=== PATIENT | female | born 1945 | race Caucasian/White ===

== ENCOUNTER 2024-05-18 06:10 | Inpatient (IN) | payer OTHER, SELFPAY ==
[2024-04-17 13:40] VITALS: BMI 41.4
[2024-04-17 14:14] LABS: Hematocrit 44.3 % (37.0-47.0); Hemoglobin 14.8 g/dL (12.0-16.0); Mean Corp Hgb Conc. 33.4 g/dL (33.0-37.0); Mean Corpuscular Hgb 29.6 pg (27.0-31.0); Mean Corpuscular Volume 88.6 fL (81.0-99.0); Mean Platelet Volume 10.6 fL (7.4-10.4); Platelet Count 302 10^3/uL (130-400); Red Cell Dist. Width 14.4 % (11.5-14.5); White Blood Cell Count 11.9 10^3/uL (4.8-10.8)
[2024-04-17 14:54] LABS: ALT (SGPT) 17 U/L (0-35); AST (SGOT) 26 U/L (14-36); Albumin 4.6 g/dl (3.5-5.0); Alkaline Phosphatase 69 U/L (38-126); Blood Urea Nitrogen 27 mg/dl (7-17); Calcium 10.5 mg/dl (8.4-10.2); Carbon Dioxide 29 mmol/L (22-30); Chloride 98 mmol/L (98-107); Estimated Creatinine Clearance 67 ml/min; Glucose 105 mg/dl (70-99); Potassium 4.6 mmol/L (3.5-5.1); Sodium 139 mmol/L (135-145); Total Bilirubin 0.5 mg/dl (0.2-1.3); Total Protein 6.6 g/dl (6.3-8.2); eGFR > 60.00
[2024-04-18 09:02] LABS: Glycohemoglobin (HgbA1c) 5.6 % (4.0-5.6)
[2024-05-12 11:14] VITALS: BMI 41.4
--- NOTE | 2024-05-17 14:53 | PTCARENOTE ---
Patients 04/17 ECG abnormal- reviewed By Dr. Dumas- no additional interventions required
[2024-05-18] VITALS (11 sets, daily range): BP systolic 101–152; BP diastolic 46–78; PULSE 77; O2SAT 93
[2024-05-18] MEDS: MOBIC 15 MG PO (06:06)
[2024-05-18] MEDS: TYLENOL 650 MG PO ×5 (06:06→23:39)
[2024-05-18] MEDS: NORMOSOL-R/PLASMALYTE-A 1000 IV (09:32)
[2024-05-18] MEDS: ROXICODONE 5 MG PO ×3 (09:39→23:45)
--- NOTE | 2024-05-18 11:00 | PTCARENOTE ---
Pt Received from the PACU via bed. Transport was w/o incident. Pt is AAOx3, HRR w/murmur. Principal Strategist showing NSR. Pt's VSS, Pt is afebrile. Left knee with antibacterial dressing intact, scant amt. of bloody shadowing noted. Ice pack applied as
ordered. pt instructed on plan of care. Pt verbalized understanding of instructions. Call sanchez is within reach.
--- NOTE | 2024-05-18 12:37 | W.PN.ORTHO ---
Today's Communication / Plan
-
D/c when clinically stable.
Assessment
.
Distal Motor Intact: Yes
Dressing:
Clean, dry and intact.
Assessment:
L knee OA s/p L TKA w/ Dr Oshea 05/18/24
- s/p R TKA 2008
DVT prophylaxis - Eliquis at modified dosing (has Rx at home for BID until POD 5), b/l venous foot pumps
- Will resume Eliquis 5 mg PO BID on POD 5 if hemodynamically stable
H/o severe N/V reportedly w/ anesthesia in the past - Compazine prn (will Rx upon d/c)
- Continue daily PPI
- Consider Scopolamine patch
HTN - + parameters - monitor BP
PACs w/ palps - monitor on tele
- Continue BB
Chronic SOB, improving w/ recent intentional weight loss
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
- IS
- Resume Eliquis as stated above
- Frequent and early ambulation as tolerated
GERD and h/o GI ulcers - continue PPI therapy
- Minimize NSAIDs
Fibromyalgia - monitor pain and adjust meds as needed
HLD
Heart murmur
Diverticulosis
KRUEGER
OAB
Depression
Anxiety
+ Anticardiolipin Ab
Mild leukocytosis, asymptomatic
Mild hypercalcemia
Morbid obesity, BMI 41.4
Remote tobacco abuse
Plan
.
Surgery / Date: L TKA w/ Dr Oshea 05/18/24
DVT Prophylaxis: Other (Eliquis )
Activity:
Out of bed.
PT/OT
Discharge Plan: Home w/ Outpatient PT
Subjective
.
.:
Patient resting comfortably in bed.
Pain 'creeping up' in L knee but overall tolerable.
Denies any new significant complaints.
Vital Signs and Labs
.
Vital Signs and Labs:
Lab Results
04/17/24 13:12
04/17/24 13:12
Temp Pulse Resp BP Pulse Ox
98.8 F 74 16 152/78 95
05/18/24 06:08 05/18/24 06:08 05/18/24 06:08 05/18/24 06:08 05/18/24 06:08
Physical Exam
-
HEENT: No pallor, cyanosis, or jaundice. Throat clear.
NECK: Supple. No JVD.
RESPIRATORY: Lungs clear to auscultation.
CVS: S1, S2 normal. RRR.�
ABDOMEN: Soft, non-tender. No distension. Morbidly obese.
EXTREMITIES: Strength equal, no calf pain with palpation/dorsiflexion. Calves soft.
ORTHOTIC/PROSTHETIC CLINICIAN: AOx3. No focal deficits. assessment nurse practitioner grossly intact
[2024-05-18] MEDS: PROTONIX PO (13:21)
[2024-05-18] MEDS: VITAMIN D3 (cholecalciferol) 25 MCG PO (13:27)
--- NOTE | 2024-05-18 14:37 | W.PN.UPDATE ---
Update Note
Progress Note Update
Patient seen and examined. AVSS. Pulm: nonlabored. CV: regular. Abd: benign. LLE: Dressing CDI. Calf soft. Able to fully extend. Post op xray as expected. Eliquis for DVT prophylaxis. Plan for discharge home tomorrow and outpatient PT
at [facility] Wednesday.
--- NOTE | 2024-05-18 15:43 | CM ---
Reviewed the chart notes and spoke with the patient at the bedside. The patient resides alone in a two story [facility] with one step to enter. The patient reports to have in the home: rolling walker, shower chair, and shower grab bars. Patient
has been to [facility] and had VN back in 2008. Agency name unknown. The patient confirmed her pharmacy of choice is [facility] [address] [place] [address]. The patient will be staying with her son and starting outpatient therapy on Wednesday. Family will
provide transportation to therapy. CM continues to be available to patient/family and is monitoring medical plan for needs at discharge.
Plan: Discharge to the son's home when medically stable.
[2024-05-18] MEDS: ANCEF 5 IV ×2 (16:50→23:39)
[2024-05-18] MEDS: ROXICODONE 10 MG PO (18:20)
[2024-05-18] MEDS: TENORMIN 75 MG PO (21:28)
[2024-05-18] MEDS: PEPCID 40 MG PO (21:28)
[2024-05-18] MEDS: COLACE 100 MG PO (21:29)
[2024-05-18] MEDS: DECADRON 4 MG PO (21:29)
[2024-05-18] MEDS: SENOKOT 17.2 MG PO (21:29)
[2024-05-18] MEDS: ELIQUIS 2.5 MG PO (21:30)
[2024-05-18] MEDS: LIPITOR 10 MG PO (21:30)
[2024-05-18] MEDS: BACTROBAN 2% OINTMENT 1 APPLIC NASAL (21:30)
[2024-05-19 03:14] VITALS: BP 116/50
[2024-05-19] MEDS: TYLENOL 650 MG PO ×2 (04:12→07:48)
[2024-05-19] MEDS: ROXICODONE 5 MG PO ×2 (06:14→10:22)
--- NOTE | 2024-05-19 07:19 | W.PN.ORTHO ---
Today's Communication / Plan
-
Plan for discharge home today with outpatient PT on Wednesday
Assessment
.
Distal Motor Intact: Yes
Dressing:
Clean, dry and intact.
Assessment:
Doing well s/p TKR
Eliquis for DVT prophylaxis
Plan
.
Surgery / Date: L TKA w/ Dr Oshea 05/18/24
DVT Prophylaxis: Other (Eliquis)
Activity:
Out of bed.
PT/OT
Discharge Plan: Home w/ Outpatient PT
Subjective
.
.:
Patient resting comfortably. OOB yesterday. Doing well
Vital Signs and Labs
.
Vital Signs and Labs:
Lab Results
04/17/24 13:12
04/17/24 13:12
Temp Pulse Resp BP Pulse Ox
98.3 F 72 18 116/50 95
05/19/24 03:14 05/19/24 03:14 05/19/24 03:14 05/19/24 03:14 05/19/24 04:10
Non-invasive Hgb result: 12.5
Physical Exam
-
Pulm: nonlabored
CV: regular
Abd: benign
LLE: Dressing CDI. Calf soft. Able to fully extend
[2024-05-19] MEDS: PROTONIX 40 MG PO (07:48)
[2024-05-19] MEDS: SENOKOT 17.2 MG PO (07:48)
[2024-05-19] MEDS: CELEXA 40 MG PO (07:48)
[2024-05-19 07:50] VITALS: BP 114/51
[2024-05-19] MEDS: TENORMIN 75 MG PO (07:52)
[2024-05-19] MEDS: COLACE 100 MG PO (07:53)
[2024-05-19] MEDS: DECADRON 4 MG PO (07:53)
[2024-05-19] MEDS: ELIQUIS 2.5 MG PO (07:53)
[2024-05-19] MEDS: BACTROBAN 2% OINTMENT 1 APPLIC NASAL (07:53)
[2024-05-19] MEDS: VITAMIN D3 (cholecalciferol) 25 MCG PO (07:53)
--- NOTE | 2024-05-19 09:24 | W.PN.ORTHO ---
Today's Communication / Plan
-
Await OT recs. Pt did well w/ PT this morning.
D/c later today if remaining clinically stable.
Assessment
.
Distal Motor Intact: Yes
Dressing:
Small areas of old incisional bleeding, relatively unchanged since yesterday.
Assessment:
L knee OA s/p L TKA w/ Dr Oshea 05/18/24
- s/p R TKA 2008
DVT prophylaxis - Eliquis at modified dosing (has Rx at home for BID until POD 5), b/l venous foot pumps
- Will resume Eliquis 5 mg PO BID on POD 5 since hemodynamically stable
H/o severe N/V reportedly w/ anesthesia in the past - Compazine prn (will Rx upon d/c)
- Continue daily PPI
- No need for Scopolamine patch as no reported N/V by POD 1
HTN - + parameters - BPs stable
PACs w/ palps - rhythm stable on tele
- Continue BB
Chronic SOB, improving w/ recent intentional weight loss
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
- IS
- Resumed Eliquis as stated above
- Frequent and early ambulation as tolerated
GERD and h/o GI ulcers - continue PPI therapy
- Minimize NSAIDs
Fibromyalgia - pain reportedly well controlled by POD 1
HLD
Heart murmur
Diverticulosis
KRUEGER
OAB
Depression
Anxiety
+ Anticardiolipin Ab
Mild leukocytosis, asymptomatic
Mild hypercalcemia
Morbid obesity, BMI 41.4
Remote tobacco abuse
Plan
.
Surgery / Date: L TKA w/ Dr Oshea 05/18/24
DVT Prophylaxis: Other (Eliquis )
Activity:
Out of bed.
PT/OT
Discharge Plan: Home w/ Outpatient PT ([facility] faxed script to PT)
Subjective
.
.:
Patient resting comfortably in her bed.
L knee pain overall well tolerated w/ current pain meds.
Denies any new significant complaints.
Eager for potential d/c today.
Vital Signs and Labs
.
Vital Signs and Labs:
Lab Results
04/17/24 13:12
04/17/24 13:12
Temp Pulse Resp BP Pulse Ox
99.1 F 68 16 114/51 94
05/19/24 07:50 05/19/24 07:52 05/19/24 07:50 05/19/24 07:52 05/19/24 07:50
Non-invasive Hgb result: 12.5
Physical Exam
-
HEENT: No pallor, cyanosis, or jaundice. Throat clear.
NECK: Supple. No JVD.
RESPIRATORY: Lungs clear to auscultation.
CVS: S1, S2 normal. RRR.�
ABDOMEN: Soft, non-tender. No distension.
EXTREMITIES: Expected post-surgical L knee edema. Strength equal. No calf pain with palpation/dorsiflexion. Calves soft.
COMMUNITY EDUCATION COORDINATOR: AOx3. No focal deficits. bead wrapper grossly intact
--- NOTE | 2024-05-19 09:37 | W.DS.TRANS ---
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
-
Discharge Instructions:
Sleep Apnea Risk Intermediate
Discharge Diagnosis/Procedures L knee OA s/p L TKA w/ Dr Oshea 05/18/24
Diet Regular
Activity As tolerated,With Walker
Driving Restrictions Not until seen by your Dr
Bathing Restrictions OK to Shower
Other Services PT
Wound Care Dressing to be removed 1 week post-surgery.
Instructions:
Stand-Alone Forms: Total Hip/Knee Replacement D/C
Changes to Home Medications: Yes
Discharge Medications:
DC Medications w/original date entered in [facility]
atenolol 50 mg tablet 75 mg PO BID Blood pressure 05/16/22
cholecalciferol (vitamin D3) 25 mcg (1,000 unit) tablet (Vitamin D3) 25 mcg PO DAILY Supplement 05/16/22
clonazepam 0.5 mg tablet 0.25 mg PO HS Mental Health/Anxiety 05/16/22
omeprazole 40 mg capsule,delayed release 40 mg PO DAILY Gastrointestinal issue 05/16/22
simvastatin 20 mg tablet 20 mg PO HS High cholesterol 05/16/22
citalopram 40 mg tablet (Celexa) 40 mg PO DAILY Mental Health/Anxiety 09/01/22
mirabegron 50 mg tablet,extended release 24 hr (Myrbetriq) 50 mg PO DAILY Urinary issue 09/01/22
apixaban 5 mg tablet (Eliquis) 5 mg PO BID #60 tabs 09/03/22
famotidine 40 mg tablet (Pepcid) 40 mg PO HS 05/12/24
mupirocin 2 % topical ointment 1 applic topical BID 05/12/24
prochlorperazine maleate 5 mg tablet (Compazine) 5 mg PO TID PRN nausea and vomiting #30 tabs 05/18/24
acetaminophen 500 mg tablet (Tylenol Extra Strength) 1,000 mg (2 x 500 mg) PO Q6H Pain #60 tabs 05/19/24
apixaban 2.5 mg tablet (Eliquis) 2.5 mg PO BID #9 tabs 05/19/24
dexamethasone 4 mg tablet 4 mg PO Q12H Anti-inflammatory #7 tabs 05/19/24
docusate sodium 100 mg capsule 100 mg PO BID #30 caps 05/19/24
oxycodone 5 mg tablet 5 - 10 mg (1 - 2 x 5 mg) PO Q6H PRN moderate-severe pain #30 tabs 05/19/24
sennosides 8.6 mg tablet (Senna Laxative) 17.2 mg (2 x 8.6 mg) PO BID #30 tabs 05/19/24
Home Medication Changes
prochlorperazine maleate 5 mg tablet (Compazine) 5 mg PO TID PRN nausea and vomiting #30 tabs 05/18/24
acetaminophen 500 mg tablet (Tylenol Extra Strength) 1,000 mg (2 x 500 mg) PO Q6H Pain #60 tabs 05/19/24
apixaban 2.5 mg tablet (Eliquis) 2.5 mg PO BID #9 tabs 05/19/24 - for 5 days post-op, then resume Eliquis 5 mg PO BID
dexamethasone 4 mg tablet 4 mg PO Q12H Anti-inflammatory #7 tabs 05/19/24
docusate sodium 100 mg capsule 100 mg PO BID #30 caps 05/19/24
oxycodone 5 mg tablet 5 - 10 mg (1 - 2 x 5 mg) PO Q6H PRN moderate-severe pain #30 tabs 05/19/24
sennosides 8.6 mg tablet (Senna Laxative) 17.2 mg (2 x 8.6 mg) PO BID #30 tabs 05/19/24
Pending Results: No
[2024-05-19 09:40] VITALS: BP 131/73; PULSE 72; O2SAT 93
[2024-05-19 10:23] VITALS: BP 126/58; PULSE 63; O2SAT 93
--- NOTE | 2024-05-19 11:00 | CM ---
Reviewed the chart notes. Patient for discharge today.
Plan: Discharge to the son's home when medically stable. Patient will start outpatient therapy on Wednesday.
[2024-05-19 11:20] VITALS: BP 112/54
== END 2024-05-19 12:15 | disposition home or self-care (01) | DRG 470 ==
LOC: 2 SOUTH 06:10
PROVIDERS: ADMITTING PHYSICIAN Orthopaedic Surgery; FAMILY PHYSICIAN Internal Medicine; REFERRING PHYSICIAN Internal Medicine Hematology & Oncology
PROC: 0SRD0J9 Replacement of Left Knee Joint with Synthetic Substitute, Cemented, Open Approach (ICD-10-PCS; 2024-05-18)
DX: M17.12 Unilateral primary osteoarthritis, left knee (principal); Z68.41 Body mass index [BMI] 40.0-44.9, adult; E66.01 Morbid (severe) obesity due to excess calories; F32.A Depression, unspecified; M79.7 Fibromyalgia; K21.9 Gastro-esophageal reflux disease without esophagitis
CPT/HCPCS: 36415; 73560; 80053; 83036; 85027; 87070; 93005; 97110; 97116; 97162; 97166; 97530; 97535; C1713; C1776

== ENCOUNTER → 2024-09-13 14:16 | Outpatient (REF) | payer OTHER, SELFPAY | LOC: HWRAD 14:16 | PROVIDERS: ATTENDING PHYSICIAN Specialist; FAMILY PHYSICIAN Internal Medicine | DX: M19.012 Primary osteoarthritis, left shoulder (principal); M25.512 Pain in left shoulder | CPT/HCPCS: 73200 ==

== ENCOUNTER 2024-11-18 13:03 | Observation (INO) | payer OTHER, SELFPAY ==
[2024-11-17 21:30] VITALS: BP 140/73
[2024-11-17 21:56] VITALS: BMI 39.8
[2024-11-17 22:42] LABS: ALT (SGPT) 13 U/L (0-35); AST (SGOT) 18 U/L (14-36); Albumin 4.1 g/dl (3.5-5.0); Alkaline Phosphatase 45 U/L (38-126); Blood Urea Nitrogen 25 mg/dl (7-17); Calcium 9.8 mg/dl (8.4-10.2); Carbon Dioxide 24 mmol/L (22-30); Chloride 109 mmol/L (98-107); Estimated Creatinine Clearance 82 ml/min; Glucose 132 mg/dl (70-99); Sodium 139 mmol/L (135-145); Total Bilirubin 0.3 mg/dl (0.2-1.3); Total Protein 6.3 g/dl (6.3-8.2); eGFR > 60.00
[2024-11-17 23:17] LABS: % Basophils 0.5 % (0-2); % Eosinophils 0.3 % (0-6); % Immature Granulocytes 0.5 % (0-0.5); % Lymphocytes 10.3 % (20.5-51.1); % Monocytes 8.7 % (1.7-9.3); % Neutrophils 79.7 % (42.2-75.2); Absolute Basophils 0.1 10^3/uL (0-0.2); Absolute Immature Granulocytes 0.1 10^3/uL (0-0.05); Absolute Lymphocytes 1.4 10^3/uL (1.2-3.4); Absolute Monocytes 1.1 10^3/uL (0.1-0.6); Absolute Neutrophils 10.4 10^3/uL (1.4-6.5); Hematocrit 37.2 % (37.0-47.0); Hemoglobin 12.5 g/dL (12.0-16.0); Mean Corp Hgb Conc. 33.6 g/dL (33.0-37.0); Mean Corpuscular Hgb 29.1 pg (27.0-31.0); Mean Corpuscular Volume 86.5 fL (81.0-99.0); Nucleated Red Blood Cells % 0 %; Platelet Count 293 10^3/uL (130-400); White Blood Cell Count 13.1 10^3/uL (4.8-10.8)
[2024-11-18] VITALS (16 sets, daily range): BP systolic 93–161; BP diastolic 57–81; BMI 38.6
[2024-11-18 00:04] LABS: Troponin I 0.015 ng/ml
--- NOTE | 2024-11-18 00:44 | ED.GENMED ---
History of Present Illness
<Martín Lloyd DO - Last Filed: 11/18/24 05:50>
General
Chief Complaint: Chest Pain
Source: patient and family
Time Seen by Provider: 11/17/24 21:57
History of Present Illness
History of Present Illness:
79-year-old female who presents with chest pain. Patient states she has a history of PE. Pain she first noticed this morning around 9 AM. It has been somewhat coming and going. It is under her breast bilaterally. She states she did feel short
of breath earlier but admits that she does get anxious. The patient takes Eliquis and has not missed any doses. She has a history of antiphospholipid antibody syndrome. Patient denies palpitations. No history of coronary disease. Patient states
she has had a stress test in the past.
Past History
<Martín Lloyd DO - Last Filed: 11/18/24 05:50>
Past History
ED Past Medical History: GERD, HTN, Hypercholesterolemia and Other (Pituitary adenoma, antiphospholipid antibody syndrome)
ED Past Surgical History: Orthopedic (Right total knee replacement)
Social History
Tobacco: Non-smoker
Phy Exam
<Martín Lloyd DO - Last Filed: 11/18/24 05:50>
Physical Exam
Physical Exam:
CONSTITUTIONAL Patient alert and oriented to person, place and time. Well-appearing. Vital signs reviewed.
HEAD atraumatic, normocephalic.
EYES eyelids normal to inspection, Extraocular muscles intact, Conjunctiva normal, Sclera normal.
NECK normal range of motion, Trachea midline, no jugular venous distention.
RESPIRATORY CHEST No respiratory distress noted, Chest expansion equal, Bilateral breath sounds clear.
CARDIOVASCULAR regular rate and rhythm, Heart sounds normal.
ABDOMEN abdomen nontender, Bowel sounds normal. No distention.
BACK normal inspection, no obvious deformities
UPPER EXTREMITY range of motion normal, Motor strength normal, no cyanosis, no edema.
LOWER EXTREMITY range of motion normal, Motor strength normal, no cyanosis, no edema.
NEURO Speech normal, No focal motor deficits, Riley coma scale 15, Memory normal, Cranial Nerves intact to screening exam.
SKIN skin warm, dry, and normal in color.
Scores
<Zachary Rg MD - Last Filed: 11/18/24 13:29>
Heart Score for Chest Pain Patients
STEMI patient?: No
History: Slightly or Non-Suspicious
ECG: Normal
Age: >45 - <65 years
Risk Factors: 1 or 2 Risk Factors
Troponin: </= Normal Limit
Heart Score for Chest Pain Patients: 2
Heart Score Risk: 2.5% MACE over next 6 weeks
Course
<Martín Lloyd DO - Last Filed: 11/18/24 05:50>
Orders/Labs/Results
Orders:
Orders
11/17/24
Electrocardiogram (*1) Stat
Reason for Study: Chest Pain
Comment: DONE NO ORDER ENTERED
11/17/24 22:15
Comprehensive Metabolic Panel Urgent
Lipase Urgent
11/17/24 22:34
Complete Blood Count/With Diff Urgent
11/17/24 23:31
Troponin I Urgent
11/18/24
Electrocardiogram (*1) Stat
Reason for Study: Chest Pain
Comment: DONE NO ORDER ENTERED
11/18/24 00:00
CR Chest - 2 Views Urgent
Reason For Exam: cp
11/18/24 03:09
Troponin I Urgent
Comment: with EKG
11/18/24 Breakfast
Cholesterol Lowering
At Your Request: Full Participation
Does patient need a safe tray?: No
Cholesterol Lowering: Sodium, 2 Gram
11/18/24 08:27
EKG [Electrocardiogram (*1)] Routine
Reason for Study: Chest Pain
11/18/24 09:23
Troponin I Routine
11/18/24 11:14
Add On- LAB Routine
Tests Added?: lipase
11/18/24 12:09
Admit/Transfer Patient As Directed
Co-Sign Provider:
Level of Care: Observation services
Assign to:: Telemetry
Physician / Group: enedina sanchez
Diagnosis: chest pain
Reason for Telemetry: Arrhythmia
Date to Stop Telemetry: 11/21/24
Time to Stop Telemetry: 11:00
Reason for Hospitalization: chest pain
Aspirin 325 mg PO NOW STA
PRN Pain Medication Management As Directed
May give lesser potent ordered pain med per pt: Yes
preference::
Protocol:: Medication orders for pain may be administered in a
manner that supports deferring to patient preference
when the pt is:
- Requesting an ordered lesser potent pain medication.
Least to most potent pain medications are defined
as: acetaminophen < NSAID < tramadol < opioids
(morphine, oxycodone, hydromorphone).
- Requesting a lesser dose of the same medication IF
ORDERED.
- Requesting a less intrusive route of administration
if both routes are prescribed by the provider (PO <
IV).
11/18/24 12:12
Code Status As Directed
Resuscitation Status: Full Code
11/18/24 12:16
Pantoprazole [Protonix] 40 mg PO NOW STA
11/18/24 13:08
Bisacodyl [Dulcolax] 10 mg RECTAL [id number] PRN
Docusate Sodium [Colace] 100 mg PO BIDPRN PRN
Docusate W/Senna [Senokot-S] 1 tablet PO BIDPRN PRN
Polyethylene Glycol Powder [Miralax] 17 grams PO DAILYPRN PRN
11/18/24 13:08
Activity As Directed
Activity Level: As Tolerated
Intake/ Output As Directed
Frequency: Per unit guidelines
Pneumatic Compression Sleeves As Directed
Type: Knee high
Vital Signs As Directed
Frequency: Per unit guidelines
Weight As Directed
Frequency: Daily
Pulse Ox/spot Check [RESP] Routine
Quantity: 1
DX Deep Vein Thrombosis Video Routine
11/18/24 17:00
Troponin I Q8H
11/18/24 20:00
Acetaminophen [Tylenol] 1,000 mg PO BID
Apixaban [Eliquis] 5 mg PO BID
Atenolol [Tenormin] 75 mg PO BID
11/18/24 22:00
Clonazepam [Klonopin] 0.25 mg PO HS
Famotidine [Pepcid] 40 mg PO HS
simvastatin 20 mg PO HS
11/19/24 06:00
Complete Blood Count/With Diff IN AM
Comprehensive Metabolic Panel IN AM
11/19/24 08:00
Aspirin Chewable [Low Strength Aspirin] 81 mg PO DAILY
Cholecalciferol (Vitamin D3) [VITAMIN D3 (cholecalciferol)] 25 mcg PO DAILY
Citalopram [Celexa] 40 mg PO DAILY
Pantoprazole [Protonix] 40 mg PO DAILY
solifenacin [Vesicare] 10 mg PO DAILY
11/20/24 06:00
Complete Blood Count/With Diff IN AM
Comprehensive Metabolic Panel IN AM
11/21/24 11:00
DC Protocol for Telemetry ONCE
Abnormal Lab Results
11/17/24 11/17/24
22:15 22:34
WBC 13.1 H 10^3/uL
(4.8-10.8)
Abs Immat Gran (auto) 0.1 H 10^3/uL
(0-0.05)
Absolute Neuts (auto) 10.4 H 10^3/uL
(1.4-6.5)
Absolute Monos (auto) 1.1 H 10^3/uL
(0.1-0.6)
Neutrophils % 79.7 H %
(42.2-75.2)
Lymphocytes % 10.3 L %
(20.5-51.1)
Chloride 109 H mmol/L
(98-107)
BUN 25 H mg/dl
(7-17)
Glucose 132 H mg/dl
(70-99)
11/17/24 22:34
11/17/24 22:15
Vital Signs
Initial and Last Documented VS:
Initial Vital Signs
Temp Pulse Resp BP Pulse Ox
98.0 F 65 20 140/73 95
11/17/24 21:30 11/17/24 21:30 11/17/24 21:30 11/17/24 21:30 11/17/24 21:30
Last Documented Vital Signs
Temp Pulse Resp BP Pulse Ox
98.6 F 63 16 110/60 96
11/17/24 21:58 11/18/24 12:00 11/18/24 12:00 11/18/24 12:00 11/18/24 12:00
<Zachary Rg MD - Last Filed: 11/18/24 13:29>
Orders/Labs/Results
Orders:
Orders
11/17/24
Electrocardiogram (*1) Stat
Reason for Study: Chest Pain
Comment: DONE NO ORDER ENTERED
11/17/24 22:15
Comprehensive Metabolic Panel Urgent
Lipase Urgent
11/17/24 22:34
Complete Blood Count/With Diff Urgent
11/17/24 23:31
Troponin I Urgent
11/18/24
Electrocardiogram (*1) Stat
Reason for Study: Chest Pain
Comment: DONE NO ORDER ENTERED
11/18/24 00:00
CR Chest - 2 Views Urgent
Reason For Exam: cp
11/18/24 03:09
Troponin I Urgent
Comment: with EKG
11/18/24 Breakfast
Cholesterol Lowering
At Your Request: Full Participation
Does patient need a safe tray?: No
Cholesterol Lowering: Sodium, 2 Gram
11/18/24 08:27
EKG [Electrocardiogram (*1)] Routine
Reason for Study: Chest Pain
11/18/24 09:23
Troponin I Routine
11/18/24 11:14
Add On- LAB Routine
Tests Added?: lipase
11/18/24 12:09
Admit/Transfer Patient As Directed
Co-Sign Provider:
Level of Care: Observation services
Assign to:: Telemetry
Physician / Group: enedina sanchez
Diagnosis: chest pain
Reason for Telemetry: Arrhythmia
Date to Stop Telemetry: 11/21/24
Time to Stop Telemetry: 11:00
Reason for Hospitalization: chest pain
Aspirin 325 mg PO NOW STA
PRN Pain Medication Management As Directed
May give lesser potent ordered pain med per pt: Yes
preference::
Protocol:: Medication orders for pain may be administered in a
manner that supports deferring to patient preference
when the pt is:
- Requesting an ordered lesser potent pain medication.
Least to most potent pain medications are defined
as: acetaminophen < NSAID < tramadol < opioids
(morphine, oxycodone, hydromorphone).
- Requesting a lesser dose of the same medication IF
ORDERED.
- Requesting a less intrusive route of administration
if both routes are prescribed by the provider (PO <
IV).
11/18/24 12:12
Code Status As Directed
Resuscitation Status: Full Code
11/18/24 12:16
Pantoprazole [Protonix] 40 mg PO NOW STA
11/18/24 13:08
Bisacodyl [Dulcolax] 10 mg RECTAL [id number] PRN
Docusate Sodium [Colace] 100 mg PO BIDPRN PRN
Docusate W/Senna [Senokot-S] 1 tablet PO BIDPRN PRN
Polyethylene Glycol Powder [Miralax] 17 grams PO DAILYPRN PRN
11/18/24 13:08
Activity As Directed
Activity Level: As Tolerated
Intake/ Output As Directed
Frequency: Per unit guidelines
Pneumatic Compression Sleeves As Directed
Type: Knee high
Vital Signs As Directed
Frequency: Per unit guidelines
Weight As Directed
Frequency: Daily
Pulse Ox/spot Check [RESP] Routine
Quantity: 1
DX Deep Vein Thrombosis Video Routine
11/18/24 17:00
Troponin I Q8H
11/18/24 20:00
Acetaminophen [Tylenol] 1,000 mg PO BID
Apixaban [Eliquis] 5 mg PO BID
Atenolol [Tenormin] 75 mg PO BID
11/18/24 22:00
Clonazepam [Klonopin] 0.25 mg PO HS
Famotidine [Pepcid] 40 mg PO HS
simvastatin 20 mg PO HS
11/19/24 06:00
Complete Blood Count/With Diff IN AM
Comprehensive Metabolic Panel IN AM
11/19/24 08:00
Aspirin Chewable [Low Strength Aspirin] 81 mg PO DAILY
Cholecalciferol (Vitamin D3) [VITAMIN D3 (cholecalciferol)] 25 mcg PO DAILY
Citalopram [Celexa] 40 mg PO DAILY
Pantoprazole [Protonix] 40 mg PO DAILY
solifenacin [Vesicare] 10 mg PO DAILY
11/20/24 06:00
Complete Blood Count/With Diff IN AM
Comprehensive Metabolic Panel IN AM
11/21/24 11:00
DC Protocol for Telemetry ONCE
Abnormal Lab Results
11/17/24 11/17/24
22:15 22:34
WBC 13.1 H 10^3/uL
(4.8-10.8)
Abs Immat Gran (auto) 0.1 H 10^3/uL
(0-0.05)
Absolute Neuts (auto) 10.4 H 10^3/uL
(1.4-6.5)
Absolute Monos (auto) 1.1 H 10^3/uL
(0.1-0.6)
Neutrophils % 79.7 H %
(42.2-75.2)
Lymphocytes % 10.3 L %
(20.5-51.1)
Chloride 109 H mmol/L
(98-107)
BUN 25 H mg/dl
(7-17)
Glucose 132 H mg/dl
(70-99)
11/17/24 22:34
11/17/24 22:15
Vital Signs
Initial and Last Documented VS:
Initial Vital Signs
Temp Pulse Resp BP Pulse Ox
98.0 F 65 20 140/73 95
11/17/24 21:30 11/17/24 21:30 11/17/24 21:30 11/17/24 21:30 11/17/24 21:30
Last Documented Vital Signs
Temp Pulse Resp BP Pulse Ox
98.6 F 63 16 110/60 96
11/17/24 21:58 11/18/24 12:00 11/18/24 12:00 11/18/24 12:00 11/18/24 12:00
<Martín Lloyd, DO - Last Filed: 11/18/24 05:50>
MDM/Problems Addressed
Differential Diagnosis Includes:
Pulmonary embolism, acute coronary syndrome, pneumothorax, PE, gastritis, colitis, dissection
MDM/Problems Addressed:
chest pain
<Martín Lloyd DO - Last Filed: 11/18/24 05:50>
*Radiology
Radiology exam reviewed: all reviewed NAD by ED Provider
*Pulse Oximetry
Patient hypoxic: no
*EKG
Interpreted by ED Provider?: Yes
Interpretation: normal
Rate: normal
Rhythm: sinus
[place]: normal axis
Ischemia: no ischemia
*Manager Transfer Interpretation
Rate: normal
Interpretation: normal
Rhythm: sinus
*Critical Care Note
Total Time (30-74mins, 75-104mins- exclusive of procedures): Not Applicable
Data Reviewed
Source: patient and family (Son states that she was a little winded when she walked)
Further Testing Considered But Not Given:
Consider CTA but patient has been on Eliquis and has not missed any doses
<Martín Lloyd DO - Last Filed: 11/18/24 05:50>
Patient Management
Escalation/DeEscalation of care consider admission/obs:
Very minimal delta troponin. But given her age and the fact that she has had intermittent chest pain, will ask cardiology to evaluate
<Zachary Rg MD - Last Filed: 11/18/24 13:29>
Update Note
Update Note:
Pt evaluated in ED by (cardiology) - requests admission to hospitalist service for further evaluation and treatment
ED Attending Note
<Martín Lloyd DO - Last Filed: 11/18/24 05:50>
-
Portions of this chart may have been created with voice recognition software.� Occasional wrong word or��sound alike� substitutions may have occurred due to the inherent limitations of voice recognition software.
Discharge Plan
Departure
Patient Disposition: Admit
Date of Disposition: 11/18/24
Time of Disposition: 10:50
Admit to: Telemetry
Presentation/result/management discussed w/ accepting MD/DO: Hospitalist
Discharge Problem:
Chest pain
Interventions
Interventions:
*Risk Screen - Suicide Last Done: 11/17/24 21:58
*General Assessment Last Done: 11/17/24 21:30
*Neglect/Abuse Screening Last Done: 11/17/24 21:58
*ED- Fall Risk Assessment Last Done: 11/17/24 21:58
*ED COVID-19 Vaccine History Last Done: 11/17/24 21:58
ED- Cardiac Assessment Last Done: 11/18/24 08:30
[2024-11-18 03:38] LABS: Troponin I 0.026 ng/ml
--- NOTE | 2024-11-18 07:00 | EDRN ---
Spoke w/ Dr. Rg about if pt will need a 3rd troponin or not as 6 hours will be at 9:30. Dr. Rg will await consult w/ drugless physician.
--- NOTE | 2024-11-18 07:37 | EDRN ---
Pt on stretcher sleeping at this time. Pt is awaiting molecular biology scientist consult at this time.
--- NOTE | 2024-11-18 07:48 | CON.CAR ---
Addendum entered and electronically signed by Bob Hernandez MD 11/18/24 11:14:
I saw and examined the patient.
The CONTRACT RUNNER's note was reviewed and I agree with the note.
79-year-old woman with a history of pulmonary embolism, antiphospholipid antibody, chronic anticoagulation with Eliquis hypertension, GERD who presents with lower chest upper abdominal pain. Patient has had random episodes of intermittent
discomfort across her upper abdomen/lower chest episodes last about 5 minutes and then spontaneously resolve no other other associated symptoms or precipitating factors no exertional symptoms able to go up a flight of stairs yesterday without a
problem. This is a new symptom that just started yesterday morning and she had recurrent episodes during the day and last evening which brought her to the emergency department. Currently chest pain-free ECG without ischemic changes. Troponin
0.026. White blood cell count 13 . range of her troponins is nonspecific. Would consider both cardiac and noncardiac causes of her symptoms. Of note patient is already on treatment for GERD with PPI and Pepcid and she has had a cholecystectomy.
Considering description of her symptoms. Due to the uncertainty of her symptoms I would recommended in hospital as observation .
Based on clinical course can determine we will then determine if patient needs additional inpatient cardiac evaluation .
- Add aspirin to current regimen
- Continue Eliquis
- Continue PPI and Pepcid
- Check lipase
- Monitor on telemetry
Original Note:
Consultation
Consultation Request
Date/Time Consultation Requested: 11/18/24621
Date/Time Consultation Performed: 11/18/24 0735
Requesting Provider: Dr. Varela
Performing Provider: Shana FLANAGAN for Dr. Hernandez
Reason for Consultation: chest discomfort
Medical History
-
Chief Complaint: chest discomfort
History of Present Illness:
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 It started yesterday AM when
she woke up and was an ache across her chest under her breast area, and around to her back. However, it went away and did not return until last night around 7PM- then it happened 3 times since then, so she came to the ER. Each episode would last
about 15 minutes, with 1/2 hour in between. She had associated SOB, but thinks she was just anxious. She has orthopedic issues, so she is not very active, but no CP with normal daily activities and stairs in her home. No CP at the time of my
assessment.
Past Medical History
Past Medical History: HTN, Hypercholesterolemia and Other (as above)
Social History
Tobacco: Former Smoker
Family History
Family History: Reviewed & Not Pertinent
Allergies / Home Medications
Allergy/AdvReac Type Severity Reaction Status Date / Time
hydromorphone [From Dilaudid] Allergy Nausea / Verified 11/17/24 21:30
Vomiting
iodine Allergy Hives Verified 11/17/24 21:30
Sulfa (Sulfonamide Allergy Itching Verified 11/17/24 21:30
Antibiotics)
gabapentin AdvReac balance Verified 11/17/24 21:30
difficulties
pregabalin [From Lyrica] AdvReac Swelling Verified 11/17/24 21:30
of
extremities
�Medication �Instructions �Recorded �Confirmed �Type
atenolol 50 mg tablet 75 mg PO BID Blood pressure 05/16/22 05/18/24 History
clonazepam 0.5 mg tablet 0.25 mg PO HS Mental Health/Anxiety 05/16/22 05/18/24 History
omeprazole 40 mg capsule,delayed 40 mg PO DAILY Gastrointestinal 05/16/22 05/18/24 History
release issue
simvastatin 20 mg tablet 20 mg PO HS High cholesterol 05/16/22 05/18/24 History
citalopram 40 mg tablet (Celexa) 40 mg PO DAILY Mental 09/01/22 05/18/24 History
Health/Anxiety
mirabegron 50 mg tablet,extended 50 mg PO DAILY Urinary issue 09/01/22 05/18/24 History
release 24 hr (Myrbetriq)
apixaban 5 mg tablet (Eliquis) 5 mg PO BID #60 tabs 09/03/22 05/18/24 Rx
famotidine 40 mg tablet (Pepcid) 40 mg PO HS 05/12/24 05/18/24 History
acetaminophen 500 mg tablet BID
Review of Systems
-
History Source: Patient
All other systems: Negative unless noted
Cardiac: Chest Pain
Physical Exam
Vital Signs
Temp Pulse Resp BP Pulse Ox
98.6 F 59 17 112/60 93
11/17/24 21:58 11/18/24 07:30 11/18/24 07:30 11/18/24 07:00 11/18/24 07:30
Lab Results
11/17/24 22:34
11/17/24 22:15
Troponin I 0.026 ng/ml D 11/18/24 03:09
Physical Exam
General: Well Developed, Well Nourished and No Apparent Distress
HEENT: Normocephalic and Anicteric
Respiratory: Clear and Non Labored Respirations
Cardiac: Regular Rhythm
Musculoskeletal: No Edema
Skin: Warm and Dry
Neuro: AO x 3
Psych: Calm
Impression / Plan
-
Chest discomfort:
-etiology unclear- could be anginal, which is threat to life
-CAD risk factors: former smoker, HTN, HLD
-trend trops and EKG's- will check another now
-ischemic eval with nuclear stress test versus cardiac cath
Hx PE, antiphospholipid syndrome:
-on Eliquis
GERD:
-continue PPI
HTN:
-continue BB and monitor
HLD:
-continue statin, check lipids
Data Reviewed
-
EKG: Tracing Personally Visualized and interpreted (NSR)
Radiology: Report Reviewed by me (CXR: No acute cardiopulmonary process.)
Medical Tests (Nuc Med, Echo etc): Other (stress echo 2022: moderate risk due to low exercise tolerance, but normal stress echo )
Labs: Labs Reviewed by me
--- NOTE | 2024-11-18 08:15 | EDRN ---
Walter FLANAGAN for audit consultant Dr. Hernandez was in to see pt at this time. She said plan is to admit pt.
--- NOTE | 2024-11-18 09:20 | EDRN ---
Pt stated she had a twing of pain in her Mid L back that lasted on a second.
--- NOTE | 2024-11-18 09:25 | EDRN ---
9:30 am troponin #3 drawn and sent at this time.
[2024-11-18 09:54] LABS: Troponin I 0.016 ng/ml
--- NOTE | 2024-11-18 10:35 | EDRN ---
Dr. Hernandez in to see pt at this time. Pt to be admitted.
--- NOTE | 2024-11-18 11:14 | CM ---
Patient seen at bedside in ED. Patient states that she lives alone in a 2 story home and was to move to a one story apartment next door on wed. Patient indicated that her son who lives locally may assist. Other son in [place]. Patient states that
her PCP is Dr. Lydia Salas and she uses [facility] [place] and she has no DME at this time. Patient was independent of ADL's and IADL's prior to admission. CM will continue to follow for discharge planning needs.
Plan; home with no needs, status/OBS vs INP pending
--- NOTE | 2024-11-18 11:43 | EDRN ---
Pt given a abi marlene after okayed w/ Dr. Rg. Pt awaiting admission orders. [facility] in room w/ pt to perform med rec.
[2024-11-18 11:54] LABS: Lipase 180 U/L (23-300)
[2024-11-18] MEDS: ASPIRIN 325 MG PO (12:12)
--- NOTE | 2024-11-18 12:15 | HPS.HSE ---
Family Physician
-
Family Physician: Lydia Salas
Chief Complaint
-
Chest pain
History of Present Illness
79-year-old female with past medical history of pulmonary embolism, antiphospholipid antibody syndrome, GERD, hypertension, chronic anticoagulation with Eliquis, pituitary adenoma came to the hospital with chest pain. Per patient chest pain started
last night with rest and then again started this morning. Pain was dull with radiation. Denies any previous RI. Per patient she thinks she had a stress test done in 2022 when she had a pulmonary embolism and it was fine. She reports compliance
with her Eliquis. Denies any shortness of breath. Denies palpitation. Denies any fever/chills. Denies any nausea, vomiting, diarrhea, constipation.
Medical History
Past Medical History
Past Medical History: Reports GERD, HTN, Hypercholesterolemia and Other (Pituitary adenoma, antiphospholipid antibody syndrome, anxiety)
Past Surgical History: Reports Orthopedic
Social History
Tobacco: Former Smoker
Alcohol: None
Drug: None
Family History
Family History: Not pertinent
Allergies / Home Medications
Allergies reflects when Allergies were last updated in [facility].
Home Medications with original date entered in [facility]
Allergy/Medication List:
Allergies
Allergy/AdvReac Type Severity Reaction Status Date / Time
hydromorphone [From Dilaudid] Allergy Nausea / Verified 11/17/24 21:30
Vomiting
iodine Allergy Hives Verified 11/17/24 21:30
Sulfa (Sulfonamide Allergy Itching Verified 11/17/24 21:30
Antibiotics)
gabapentin AdvReac balance Verified 11/17/24 21:30
difficulties
pregabalin [From Lyrica] AdvReac Swelling Verified 11/17/24 21:30
of
extremities
Home Medications
atenolol 50 mg tablet 75 mg PO BID Blood pressure 05/16/22
cholecalciferol (vitamin D3) 25 mcg (1,000 unit) tablet (Vitamin D3) 25 mcg PO DAILY Supplement 05/16/22
clonazepam 0.5 mg tablet 0.25 mg PO HS Mental Health/Anxiety 05/16/22
simvastatin 20 mg tablet 20 mg PO HS High cholesterol 05/16/22
citalopram 40 mg tablet (Celexa) 40 mg PO DAILY Mental Health/Anxiety 09/01/22
famotidine 40 mg tablet (Pepcid) 40 mg PO HS 05/12/24
acetaminophen 500 mg tablet (Tylenol Extra Strength) 1,000 mg PO BID Pain 11/18/24
apixaban 5 mg tablet (Eliquis) 5 mg PO BID 11/18/24
docusate sodium 100 mg capsule 100 mg PO BIDPRN PRN constipation 11/18/24
solifenacin 10 mg tablet (Vesicare) 10 mg PO DAILY 11/18/24
Review of Systems
-
History Source: Patient
A 12 point ROS was completed and negative except as noted: Yes
Cardiac: Reports Chest Pain
Physical Exam
Vital Signs
Vital Signs
Temp Pulse Resp BP Pulse Ox
98.6 F 63 16 110/60 96
11/17/24 21:58 11/18/24 12:00 11/18/24 12:00 11/18/24 12:00 11/18/24 12:00
Physical Exam
General: Well Nourished and No Apparent Distress
HEENT: NormoCephalic, Anicteric and Moist mucous membranes
Respiratory: Clear and Non Labored Respirations; No Wheezes
Cardiac: S1/S2 and Regular Rhythm
GI: Soft, Non Tender, Non Distended and Normal Bowel Sounds
Rectal: Deferred by Provider
Genito-urinary: No Brown
Musculoskeletal: No Edema
Neuro: Awake, Alert, Oriented and AO x 3
Psych: Intact Judgment/Insight
Laboratory Results
-
11/17/24 22:34
11/17/24 22:15
Laboratory Results
Total Bilirubin 0.3 mg/dl (0.2-1.3) 11/17/24 22:15
AST 18 U/L (14-36) 11/17/24 22:15
ALT 13 U/L (0-35) 11/17/24 22:15
Alkaline Phosphatase 45 U/L (38-126) 11/17/24 22:15
Troponin I 0.016 ng/ml D 11/18/24 09:23
Lipase 180 U/L (23-300) 11/17/24 22:15
Data Reviewed
-
Lab Data: Labs Reviewed by me and Discussed with Patient
Impression/Plan
-
Chest pain
Etiology unknown as this could be cardiac versus noncardiac
Cardiology following
Trend troponin
Add PPI to Pepcid
Started aspirin, continue Eliquis
Monitor on telemetry
Stress versus cardiac cath per cardiology
EKG with sinus bradycardia, nonspecific T wave abnormality.
Mild leukocytosis
Monitor, no recent illness, fever
Recent injection for sciatica
History of pulmonary embolism secondary to antiphospholipid antibody syndrome
Continue with Eliquis
Follows up with hematology outpatient
History of anxiety
Continue clonazepam
Celexa
Hyperlipidemia
Continue statin
History of arthritis
DVT prophylaxis
Eliquis
Full code
--- NOTE | 2024-11-18 12:21 | EDRN ---
Dr. Cabrera in to see pt.
[2024-11-18] MEDS: PROTONIX 40 MG PO (12:41)
--- NOTE | 2024-11-18 13:30 | PTCARENOTE ---
Pt was received from ED at 1330. Pt ambulated to the room independently. BP elevated on arrival, will keep monitoring. Pt denies chest pain. No other symptoms. Resting in bed comfortably.
[2024-11-18] MEDS: PEPCID 40 MG PO (21:41)
[2024-11-18] MEDS: TENORMIN 75 MG PO (21:42)
[2024-11-18] MEDS: LIPITOR 10 MG PO (21:42)
[2024-11-18] MEDS: TYLENOL 1000 MG PO (21:42)
[2024-11-18] MEDS: ELIQUIS 5 MG PO (21:42)
[2024-11-18] MEDS: KLONOPIN 0.25 MG PO (21:42)
[2024-11-19 04:10] VITALS: BP 136/64
[2024-11-19 06:00] VITALS: BMI 37.9
[2024-11-19 06:57] LABS: ALT (SGPT) 14 U/L (0-35); AST (SGOT) 19 U/L (14-36); Albumin 4.1 g/dl (3.5-5.0); Alkaline Phosphatase 48 U/L (38-126); Blood Urea Nitrogen 17 mg/dl (7-17); Calcium 9.6 mg/dl (8.4-10.2); Carbon Dioxide 26 mmol/L (22-30); Chloride 109 mmol/L (98-107); Estimated Creatinine Clearance 79 ml/min; Glucose 103 mg/dl (70-99); Potassium 4.6 mmol/L (3.5-5.1); Sodium 141 mmol/L (135-145); Total Bilirubin 0.8 mg/dl (0.2-1.3); Total Protein 6.1 g/dl (6.3-8.2); eGFR > 60.00
[2024-11-19 07:00] VITALS: BP 131/74
[2024-11-19 07:00] LABS: % Basophils 0.3 % (0-2); % Immature Granulocytes 1.3 % (0-0.5); % Monocytes 12.5 % (1.7-9.3); % Neutrophils 66.9 % (42.2-75.2); Absolute Eosinophils 0.1 10^3/uL (0-0.7); Absolute Immature Granulocytes 0.1 10^3/uL (0-0.05); Absolute Lymphocytes 1.6 10^3/uL (1.2-3.4); Absolute Monocytes 1.1 10^3/uL (0.1-0.6); Absolute Neutrophils 5.8 10^3/uL (1.4-6.5); Hemoglobin 12.7 g/dL (12.0-16.0); Mean Corp Hgb Conc. 32.6 g/dL (33.0-37.0); Mean Corpuscular Hgb 28.6 pg (27.0-31.0); Mean Corpuscular Volume 87.8 fL (81.0-99.0); Nucleated Red Blood Cells % 0 %; Platelet Count 291 10^3/uL (130-400); Red Blood Cell Count 4.44 10^6/uL (4.20-5.40); White Blood Cell Count 8.6 10^3/uL (4.8-10.8)
[2024-11-19] MEDS: CELEXA 40 MG PO (08:12)
[2024-11-19] MEDS: TENORMIN 75 MG PO (08:12)
[2024-11-19] MEDS: DETROL LA 4 MG PO (08:12)
[2024-11-19] MEDS: ELIQUIS 5 MG PO (08:13)
[2024-11-19] MEDS: TYLENOL 1000 MG PO (08:13)
[2024-11-19] MEDS: PROTONIX 40 MG PO (08:13)
[2024-11-19] MEDS: LOW STRENGTH ASPIRIN 81 MG PO (08:13)
[2024-11-19] MEDS: VITAMIN D3 (cholecalciferol) 25 MCG PO (08:13)
--- NOTE | 2024-11-19 10:43 | W.PN.HOSP.TC ---
Addendum entered and electronically signed by Malcom Cabrera MD 11/19/24 12:53:
Discussed with cardiology, will discharge patient home today. Patient will follow-up with cardiology for outpatient stress test. Patient ambulated and had no chest pain, shortness of breath.
Original Note:
Today's Communication/Plan
-
Monitor vital signs and see plan
No further chest pain
Cardiology to see today
Possible discharge unless needed further evaluation by cardiology
PPI
Assessment / Plan
Assessment / Plan
General: Well Nourished and No Apparent Distress
HEENT: NormoCephalic, Anicteric and Moist mucous membranes
Respiratory: Clear and Non Labored Respirations; No Wheezes
Cardiac: S1/S2 and Regular Rhythm
GI: Soft, Non Tender, Non Distended and Normal Bowel Sounds
Genito-urinary: No Brown
Musculoskeletal: No Edema
Neuro: Awake, Alert, Oriented and AO x 3
Psych: Intact Judgment/Insight
Chest pain
Etiology unknown as this could be cardiac versus noncardiac; no further chest pain
Cardiology following
trop noted
Added PPI to Pepcid
Started aspirin, continue Eliquis
Monitor on telemetry
Stress versus cardiac cath per cardiology; inpatient vs outpatient. Cardiology to see today
EKG with sinus bradycardia, nonspecific T wave abnormality.
Mild leukocytosis
Monitor, no recent illness, fever
Recent injection for sciatica
resolved
History of pulmonary embolism secondary to antiphospholipid antibody syndrome
Continue with Eliquis
Follows up with hematology outpatient
History of anxiety
Continue clonazepam
Celexa
Hyperlipidemia
Continue statin
History of arthritis
DVT prophylaxis
Eliquis
Full code
Anticipated Discharge: Today
Subjective/Interval History
-
Date of Service: November 19, 2024
denies pain
Objective Data
-
Labs:
Laboratory Results
11/19/24
05:57
WBC 8.6
Hgb 12.7
Hct 39.0
Plt Count 291
Sodium 141
Potassium 4.6
Chloride 109 H
Carbon Dioxide 26
BUN 17
Creatinine 0.6
Glucose 103 H
Calcium 9.6
Total Bilirubin 0.8
AST 19
ALT 14
Alkaline Phosphatase 48
Vital Signs:
Vital Signs
Temp Pulse Resp BP Pulse Ox
98.3 F 59 18 131/74 96
11/19/24 07:00 11/19/24 07:00 11/19/24 07:00 11/19/24 07:00 11/19/24 07:00
I&O
11/18/24 11/19/24 11/20/24
06:59 06:59 06:59
Intake Total 240 / 240 360 / 360
Balance 240 / 240 360 / 360
--- NOTE | 2024-11-19 11:21 | W.PN.CD ---
Today's Communication / Plan
-
-etiology unclear-reviewed with patient both cardiac and noncardiac causes symptoms. We did discussed additional cardiac testing.
- Patient feeling well would like to go home. We discussed the additional options.
- Patient will ambulate in hallway today if she continues to feel well then may consider discharge later today with outpatient Lexiscan nuclear perfusion stress test later this week. Patient's knee issues would limit rest's testing. If she has
recurrence of symptoms or does not feel well with ambulation then she will remain in the hospital for additional testing. Patient also knows that if she is discharged and has recurrent symptoms that she should return to the ER.
Impression / Plan
-
Chest discomfort:
- Resolved. No recurrence since her evaluation in the ER yesterday.
- Ruled out for ND
-etiology unclear-reviewed with patient both cardiac and noncardiac causes symptoms. We did discussed additional cardiac testing.
- Patient feeling well would like to go home. We discussed the additional options.
- Patient will ambulate in hallway today if she continues to feel well then may consider discharge later today with outpatient Lexiscan nuclear perfusion stress test later this week. Patient's knee issues would limit rest's testing. If she has
recurrence of symptoms or does not feel well with ambulation then she will remain in the hospital for additional testing. Patient also knows that if she is discharged and has recurrent symptoms that she should return to the ER.
.
Hx PE, antiphospholipid syndrome:
-on Eliquis
GERD:
-continue PPI and Pepcid
HTN:
-continue BB and monitor
HLD:
-continue statin, check lipids
Physical Exam
Vital Signs/Labs
Vital Signs
Temp Pulse Resp BP Pulse Ox
98.3 F 59 18 131/74 96
11/19/24 07:00 11/19/24 07:00 11/19/24 07:00 11/19/24 07:00 11/19/24 07:00
11/18/24 11/19/24 11/20/24
06:59 06:59 06:59
Actual Weight 95.4 kg 90.974 kg
11/19/24 05:57
11/19/24 05:57
LAB Results
11/17/24 11/18/24 11/18/24
23:31 03:09 09:23
Troponin I 0.015 0.026 D 0.016 D
11/18/24
17:05
Troponin I 0.020
Physical Exam
Constitutional: No acute distress
Cardiovascular: Rhythm & rate is regular
Respiratory: Respiratory effort normal
GI: Soft, Non tender and Normal bowel sounds
Neuro/Psych: Alert
Data Reviewed
-
Date of Service: November 19, 2024
Medical Decision Making: Reviewed Test Results
EKG: Report Reviewed by me
Labs: Labs Reviewed by me
[2024-11-19 11:24] VITALS: BP 123/74
[2024-11-19 11:55] VITALS: BP 123/74
--- NOTE | 2024-11-19 12:50 | W.DCSUMMARY ---
Discharge Summary
Discharge Data
Date of Admission: 11/18/24
Date of Discharge: 11/19/24
-
Pending Results: No
Hospital Course
79-year-old female with past medical history of pulmonary embolism, antiphospholipid antibody syndrome, anxiety, hyperlipidemia, arthritis came to the hospital with chest pain. Patient was seen by cardiology and was recommended to admit for
observation for her chest pain. Patient chest pain continue to improve over time. Cardiology also recommended to add aspirin along with her Eliquis. Troponins were also checked and they were not significantly elevated. Since patient chest pain
resolved and she had no further chest pain or dyspnea on exertion, cardiology then recommended her to follow-up outpatient for stress test next week. Since her symptoms improved, she was then discharged home with instructions to follow-up with all
her physicians outpatient.
Discharge Plan
-
Patient Disposition: Home (Routine Discharge)
Discharge Diagnosis/Procedures: Chest pain
GERD
Diet: As tolerated
Activity: As tolerated
Driving Restrictions: As prior to admission
Bathing Restrictions: None
Activity Restrictions/Additional Instructions:
Please contact cardiology office for stress test
Referrals:
Lydia Salas MD [Family Provider] - in less than 1 week
Bob Hernandez MD [Active] - in less than 1 week
Prescriptions:
New
aspirin 81 mg Tablet,Chewable
81 mg PO DAILY Qty: 30 0RF
pantoprazole 40 mg Tablet,Delayed Release (Dr/Ec)
40 mg PO DAILY Qty: 30 0RF
Continued
clonazepam 0.5 mg Tablet
0.25 mg PO HS
simvastatin 20 mg Tablet
20 mg PO HS
atenolol 50 mg Tablet
75 mg PO BID
cholecalciferol (vitamin D3) [Vitamin D3] 25 mcg (1,000 unit) Tablet
25 mcg PO DAILY
citalopram [Celexa] 40 mg Tablet
40 mg PO DAILY
famotidine [Pepcid] 40 mg Tablet
40 mg PO HS
solifenacin [Vesicare] 10 mg Tablet
10 mg PO DAILY
Eliquis 5 mg Tablet
5 mg PO BID
acetaminophen [Tylenol Extra Strength] 500 mg tablet
1,000 mg PO BID
docusate sodium 100 mg capsule
100 mg PO BIDPRN PRN (Reason: constipation)
Discharge Orders:
Discharge Patient (As Directed); Ordered 11/19/24
Ordered By: Malcom Cabrera
Discharge Date and Time
Discharge Date/Time: 11/19/24 14:47
Print Language: OCCITAN
--- NOTE | 2024-11-19 16:32 | CM ---
Met with patient who was preparing for discharge. The patient says she feels ready to go home today. Her son will provide transport home.
No CM d/c needs identified.
Plan home today.
== END 2024-11-19 14:47 | disposition home or self-care (01) ==
LOC: 4 EAST ACU 13:03
PROVIDERS: Emergency Medicine; Nurse Practitioner; ADMITTING PHYSICIAN Internal Medicine; CONSULT PHYSICIAN Internal Medicine Cardiovascular Disease; EMERGENCY PHYSICIAN Emergency Medicine; FAMILY PHYSICIAN Internal Medicine
DX: K21.9 Gastro-esophageal reflux disease without esophagitis (principal); Z79.01 Long term (current) use of anticoagulants; Z87.891 Personal history of nicotine dependence; I10 Essential (primary) hypertension; E78.00 Pure hypercholesterolemia, unspecified; F41.9 Anxiety disorder, unspecified
CPT/HCPCS: 71046; 80053; 83690; 84484; 85025; 93005; 99285

== ENCOUNTER → 2024-11-23 12:05 | Outpatient (REF) | payer OTHER, SELFPAY | LOC: RCS 12:05 | PROVIDERS: ATTENDING PHYSICIAN Internal Medicine Cardiovascular Disease; FAMILY PHYSICIAN Internal Medicine | DX: R07.89 Other chest pain (principal); R06.02 Shortness of breath; I10 Essential (primary) hypertension | CPT/HCPCS: 78452; 93017; A9500; J2785 ==

== ENCOUNTER 2025-04-17 06:09 | Day surgery (SDC) | payer OTHER, SELFPAY ==
[2025-04-02 11:36] LABS: Hematocrit 38.2 % (37.0-47.0); Hemoglobin 12.4 g/dL (12.0-16.0); Mean Corp Hgb Conc. 32.5 g/dL (33.0-37.0); Mean Corpuscular Volume 88.8 fL (81.0-99.0); Platelet Count 258 10^3/uL (130-400); Red Cell Dist. Width 13.5 % (11.5-14.5)
[2025-04-02 11:56] LABS: ALT (SGPT) 17 U/L (0-35); AST (SGOT) 24 U/L (14-36); Albumin 4.0 g/dl (3.5-5.0); Alkaline Phosphatase 59 U/L (38-126); Blood Urea Nitrogen 13 mg/dl (7-17); Calcium 9.6 mg/dl (8.4-10.2); Carbon Dioxide 24 mmol/L (22-30); Chloride 108 mmol/L (98-107); Glucose 94 mg/dl (70-99); Potassium 4.7 mmol/L (3.5-5.1); Sodium 139 mmol/L (135-145); Total Protein 6.1 g/dl (6.3-8.2); eGFR > 60.00
[2025-04-02 13:13] LABS: Glycohemoglobin (HgbA1c) 5.8 % (4.0-5.6)
[2025-04-02 14:06] VITALS: BMI 40.1
--- NOTE | 2025-04-02 15:17 | CM ---
Demographics: confirmed
Living situation: lives alone, friend will stay with her.
Support Person Post Operatively: Friend, son also lives very close
History of
VN: no
SNF: no
Outpatient: Hx at [facility]
Has patient purchased required equipment: yes
PCP: confirmed
[facility]
Post Operative Discharge Plan: Home with family and then transition to outpatient PT.
[2025-04-02 15:45] VITALS: BMI 40.1
[2025-04-17] VITALS (11 sets, daily range): BP systolic 95–129; BP diastolic 39–60; BMI 40.1
[2025-04-17] MEDS: EMEND 40 MG PO (07:17)
[2025-04-17] MEDS: TYLENOL 1000 MG PO (07:17)
[2025-04-17] MEDS: NORMOSOL-R/PLASMALYTE-A 1000 IV (07:17)
[2025-04-17] MEDS: ANCEF 5 IV (12:32)
== END 2025-04-17 13:07 | disposition home or self-care (01) ==
LOC: SDS 06:09
PROVIDERS: ATTENDING PHYSICIAN Specialist; FAMILY PHYSICIAN Family Medicine; OTHER PHYSICIAN Physician Assistant
DX: M19.012 Primary osteoarthritis, left shoulder (principal); Z96.612 Presence of left artificial shoulder joint
CPT/HCPCS: 23472; 36415; 73020; 80053; 83036; 85027; 87070; 93005; C1713; C1776